=== PATIENT | female | born 1990 | race African-American/Black ===

== ENCOUNTER 2016-06-12 14:51 | Emergency (ER) | payer SELFPAY ==
[~2016-06-12] VITALS: Ht 175.3 cm; Wt 93.5 kg
[~2016-06-12 14:51] MED LIST: CIPR500T4 PO; IBUP800T23 PO
--- NOTE | 2016-06-12 15:30 | PD ---
Physical Exam Time Seen by Provider: 15:28 Narrative 25yo F c/o R sided abd pain x 1 week. Reports N/V today. Denies fever. Denies urinary and vag sx. VSS. Patient seen in triage. Waiting for bed placement. MDM Supervised Visit with VIRGILIO: Izzy Madison Jun 12, 2016 15:30
[2016-06-12] MEDS ORDERED: ONDANSETRON HCL 4 MG/2 ML VIAL IVP ONE (17:30)
[2016-06-12] MEDS ORDERED: SODIUM CHLORIDE 0.9% FLUSH 10 ML FLUSH IV FLUSH PRN (17:30)
[2016-06-12] MEDS ORDERED: SODIUM CHLOR 0.9% 1000 ML INJ 1,000 ML IV SCH (17:30)
--- NOTE | 2016-06-12 17:40 | PD ---
HPI Chief Complaint: GI Complaint Time Seen by Provider: 17:37 Travel History International Travel<30 days: No Contact w/Intl Traveler<30days: No Traveled to known affect area: No History of Present Illness HPI Patient is a 25-year-old female presenting to the emergency department for evaluation of abdominal cramping, nausea, urinary frequency. She states that she vomited 3 times today and has had a headache. She denies any vaginal discharge or bleeding. She states the cramping comes and goes at times is worse than other times, there are no exacerbating or alleviating factors. She denies any significant past medical history. [facility] Past Medical History Medical History: Denies Significant Hx Diminished Hearing: No ?: Unknown LMP: last week Menopausal: Yes : 0 Para: 0 Past Surgical History Surgical History: No Previous Surgery Social History Alcohol Use: Yes (socially) Tobacco Use: No Substance Use: No Allergies-Medications (Allergen,Severity, Reaction): Coded Allergies: No Known Allergies (Verified , 06/12/16) Reported Meds & Prescriptions Reported Meds & Active Scripts Active No Active Prescriptions or Reported Medications Review of Systems Except as stated in HPI: all other systems reviewed are Neg General / Constitutional: Positive: Chills HENT: Positive: Headaches Gastrointestinal: Positive: Nausea, Vomiting Genitourinary: Positive: Frequency, Pelvic Pain (cramping) Musculoskeletal: No: Myalgias Physical Exam Narrative GENERAL: Overweight, well-developed, alert female. SKIN: Focused skin assessment warm/dry. HEAD: Atraumatic. Normocephalic. EYES: Pupils equal and round. No scleral icterus. No injection or drainage. ENT: No nasal bleeding or discharge. Mucous membranes pink and moist. NECK: Trachea midline. No JVD. CARDIOVASCULAR: Regular rate and rhythm. No murmur appreciated. RESPIRATORY: No accessory muscle use. Clear to auscultation. Breath sounds equal bilaterally. GASTROINTESTINAL: Abdomen soft, only tender to palpation in suprapubic region, nondistended. Hepatic and splenic margins not palpable. Positive bowel sounds. MUSCULOSKELETAL: No obvious deformities. No clubbing. No cyanosis. No edema. No CVAT bilaterally. NEUROLOGICAL: Awake and alert. No obvious cranial nerve deficits. Motor grossly within normal limits. Normal speech. PSYCHIATRIC: Appropriate mood and affect; insight and judgment normal. Data Data Last Documented VS Vital Signs Date Time Temp Pulse Resp B/P Pulse Ox O2 Delivery O2 Flow Rate FiO2 06/12/16 17:44 70 15 116/58 100 Orders Complete Blood Count With Diff (06/12/16 17:30) Comprehensive Metabolic Panel (06/12/16 17:30) Lipase (06/12/16 17:30) Urinalysis - C+S If Indicated (06/12/16 17:30) Iv Access Insert/Monitor (06/12/16 17:30) Oximetry (06/12/16 17:30) Ondansetron Inj (Zofran Inj) (06/12/16 17:30) Sodium Chlor 0.9% 1000 Ml Inj (Ns 1000 M (06/12/16 17:30) Sodium Chloride 0.9% Flush (Ns Flush) (06/12/16 17:30) Ed Urine Pregnancytest Poc (06/12/16 17:30) Urine Culture (06/12/16 14:50) Labs Laboratory Tests Test 06/12/16 06/12/16 14:50 17:50 Urine Color YELLOW Urine Turbidity HAZY Urine pH 7.0 Urine Specific [place] 1.029 Urine Protein 30 mg/dL Urine Glucose (UA) NEG mg/dL Urine Ketones TRACE mg/dL Urine Occult Blood NEG Urine Nitrite NEG Urine Bilirubin NEG Urine Urobilinogen LESS THAN 2.0 MG/DL Urine Leukocyte Esterase LARGE Urine RBC 6 /hpf Urine WBC 11 /hpf Urine Squamous Epithelial 6 /hpf Cells Urine Bacteria FEW /hpf Urine Mucus MANY /lpf Microscopic Urinalysis Comment CULTURE INDICATED White Blood Count 8.4 TH/MM3 Red Blood Count 3.76 MIL/MM3 Hemoglobin 10.3 GM/DL Hematocrit 32.9 % Mean Corpuscular Volume 87.4 FL Mean Corpuscular Hemoglobin 27.4 PG Mean Corpuscular Hemoglobin 31.3 % Concent Red Cell Distribution Width 16.7 % Platelet Count 331 TH/MM3 Mean Platelet Volume 9.0 FL Neutrophils (%) (Auto) 78.9 % Lymphocytes (%) (Auto) 16.7 % Monocytes (%) (Auto) 3.9 % Eosinophils (%) (Auto) 0.1 % Basophils (%) (Auto) 0.4 % Neutrophils # (Auto) 6.6 TH/MM3 Lymphocytes # (Auto) 1.4 TH/MM3 Monocytes # (Auto) 0.3 TH/MM3 Eosinophils # (Auto) 0.0 TH/MM3 Basophils # (Auto) 0.0 TH/MM3 CBC Comment DIFF FINAL Differential Comment Sodium Level 140 MEQ/L Potassium Level 3.7 MEQ/L Chloride Level 106 MEQ/L Carbon Dioxide Level 28.5 MEQ/L Anion Gap 6 MEQ/L Blood Urea Nitrogen 8 MG/DL Creatinine 0.72 MG/DL Estimat Glomerular Filtration 121 ML/MIN Rate Random Glucose 78 MG/DL Calcium Level 8.7 MG/DL Total Bilirubin 0.2 MG/DL Aspartate Amino Transf 18 U/L (AST/SGOT) Alanine Aminotransferase 21 U/L (ALT/SGPT) Alkaline Phosphatase 77 U/L Total Protein 8.7 GM/DL Albumin 3.7 GM/DL Lipase 124 U/L [facility] Medical Decision Making Medical Screen Exam Complete: Yes Emergency Medical Condition: Yes Interpretation(s) Laboratory Tests Test 06/12/16 06/12/16 14:50 17:50 Urine Color YELLOW Urine Turbidity HAZY Urine pH 7.0 Urine Specific [place] 1.029 Urine Protein 30 mg/dL Urine Glucose (UA) NEG mg/dL Urine Ketones TRACE mg/dL Urine Occult Blood NEG Urine Nitrite NEG Urine Bilirubin NEG Urine Urobilinogen LESS THAN 2.0 MG/DL Urine Leukocyte Esterase LARGE Urine RBC 6 /hpf Urine WBC 11 /hpf Urine Squamous Epithelial 6 /hpf Cells Urine Bacteria FEW /hpf Urine Mucus MANY /lpf Microscopic Urinalysis Comment CULTURE INDICATED White Blood Count 8.4 TH/MM3 Red Blood Count 3.76 MIL/MM3 Hemoglobin 10.3 GM/DL Hematocrit 32.9 % Mean Corpuscular Volume 87.4 FL Mean Corpuscular Hemoglobin 27.4 PG Mean Corpuscular Hemoglobin 31.3 % Concent Red Cell Distribution Width 16.7 % Platelet Count 331 TH/MM3 Mean Platelet Volume 9.0 FL Neutrophils (%) (Auto) 78.9 % Lymphocytes (%) (Auto) 16.7 % Monocytes (%) (Auto) 3.9 % Eosinophils (%) (Auto) 0.1 % Basophils (%) (Auto) 0.4 % Neutrophils # (Auto) 6.6 TH/MM3 Lymphocytes # (Auto) 1.4 TH/MM3 Monocytes # (Auto) 0.3 TH/MM3 Eosinophils # (Auto) 0.0 TH/MM3 Basophils # (Auto) 0.0 TH/MM3 CBC Comment DIFF FINAL Differential Comment Sodium Level 140 MEQ/L Potassium Level 3.7 MEQ/L Chloride Level 106 MEQ/L Carbon Dioxide Level 28.5 MEQ/L Anion Gap 6 MEQ/L Blood Urea Nitrogen 8 MG/DL Creatinine 0.72 MG/DL Estimat Glomerular Filtration 121 ML/MIN Rate Random Glucose 78 MG/DL Calcium Level 8.7 MG/DL Total Bilirubin 0.2 MG/DL Aspartate Amino Transf 18 U/L (AST/SGOT) Alanine Aminotransferase 21 U/L (ALT/SGPT) Alkaline Phosphatase 77 U/L Total Protein 8.7 GM/DL Albumin 3.7 GM/DL Lipase 124 U/L Vital Signs Date Time Temp Pulse Resp B/P Pulse Ox O2 Delivery O2 Flow Rate FiO2 06/12/16 17:44 70 15 116/58 100 Differential Diagnosis UTI versus diverticulitis versus gastroenteritis versus viral syndrome versus other Narrative Course Patient is a 25-year-old female presenting to the for evaluation of nausea, pelvic cramping, vomiting. Patient's vital signs are stable, urinalysis obtained and is indicative of urinary tract infection. CBC, chemistry are unremarkable. Patient given Zofran and IV fluids in the emergency department. She was encouraged to increase fluid intake, complete full course of in about X as directed, follow up with a primary doctor. She is encouraged to return to emergency department for any new or worsening symptoms. Patient verbalized understanding of these instructions. Patient stable for discharge. Diagnosis Primary Impression: Pyelonephritis Additional Impression: UTI (urinary tract infection) Qualified Code: N39.0 - Urinary tract infection without hematuria, site unspecified Referrals: Primary Care Physician 2 days Patient Instructions: Acute Pyelonephritis (ED), General Instructions Additional Instructions: Increased fluid intake Return to emergency department for any new or worsening symptoms Follow-up with her primary doctor Complete full course of antibiotics as prescribed Med/Other Pt SpecificInfo: Prescription(s) given Scripts Nitrofurantoin Monohydrate Macrocrystals 100 Mg [id number] Mg PO BID 7 Days Ref 0 Prov:Raya Rodas 06/12/16 Phenazopyridine (Pyridium)200 Mg [id number] Mg PO Q8H PRN (DYSURIA) 3 Days Ref 0 Prov:Raya Rodas 06/12/16 Disposition: 01 DISCHARGE HOME Condition: Stable Raya Rodas Jun 12, 2016 17:40
[2016-06-12 17:44] VITALS: BP 116/58; PULSE 70; RESP 15; O2SAT 100
[2016-06-12 18:01] LABS: AUTOMATED NEUTROPHIL # 6.6 TH/MM3 (1.8-7.7); BASOPHIL % 0.4 % (0.0-2.0); EOSINOPHIL % 0.1 % (0.0-4.0); HEMATOCRIT 32.9 % (35.0-46.0); HEMO FLAGS DIFF FINAL; LYMPH % 16.7 % (9.0-44.0); LYMPHOCYTE # 1.4 TH/MM3 (1.0-4.8); MEAN CELL VOLUME 87.4 FL (80.0-100.0); MEAN CORPUSCULAR HEMOGLOBIN 27.4 PG (27.0-34.0); MEAN CORPUSCULAR HGB CONC 31.3 % (32.0-36.0); MONO % 3.9 % (0.0-8.0); NEUT % 78.9 % (16.0-70.0); PLATELET COUNT 331 TH/MM3 (150-450); RED BLOOD COUNT 3.76 MIL/MM3 (4.00-5.30); RED CELL DISTRIBUTION WIDTH 16.7 % (11.6-17.2); WHITE BLOOD COUNT 8.4 TH/MM3 (4.0-11.0)
[2016-06-12 18:12] LABS: BACTERIA, URINE FEW /hpf; BLOOD, URINE NEG (NEG); GLUCOSE,URINE NEG (NEG); KETONE, URINE TRACE mg/dL (NEG); MUCUS URINE MANY /lpf (OCC); NITRITE,URINE NEG (NEG); SQUAMOUS EPITHELIAL CELL URINE 6 /hpf (0-5); URINE COLOR YELLOW (YELLW/STRAW)
[2016-06-12 18:16] LABS: COMMENT (UR) CULTURE INDICATED; CULTURE IF INDICATED CULTURE INDICATED
[2016-06-12 18:28] LABS: ANION GAP 6 MEQ/L (5-15); AST (GOT) 18 U/L (15-37); BICARBONATE 28.5 MEQ/L (21.0-32.0); BLOOD UREA NITROGEN 8 MG/DL (7-18); CHLORIDE 106 MEQ/L (98-107); GLOMERULAR FILTRATION RATE 121 ML/MIN (>89); POTASSIUM 3.7 MEQ/L (3.5-5.1); SODIUM (NA) 140 MEQ/L (136-145)
[2016-06-12 18:31] LABS: ALKALINE PHOSPHATASE 77 U/L (45-117); ALT (GPT) 21 U/L (10-53); TOTAL BILIRUBIN ADULT 0.2 MG/DL (0.2-1.0)
[2016-06-12] MEDS ORDERED: NITR100C4 PO (19:06)
[2016-06-12] MEDS ORDERED: PYRI200T4 PO (19:06)
== END 2016-06-12 19:54 | disposition home or self-care (01) ==
LOC: NEPD 14:51
DX: N12 Tubulo-interstitial nephritis, not specified as acute or chronic (principal); N39.0 Urinary tract infection, site not specified; R51 Headache
CPT/HCPCS: 80053; 81001; 83690; 84703; 85025; 87086; 96361; 96374; 99284; J2405; J7030

== ENCOUNTER 2016-08-09 04:20 | Emergency (ER) | payer SELFPAY ==
[~2016-08-09 04:20] MED LIST changes: -CIPR500T4 PO; -IBUP800T23 PO; +NITR100C4 PO; +PYRI200T4 PO
[2016-08-09 04:23] VITALS: BP 123/62; PULSE 81; RESP 16; TEMP 98.1; O2SAT 98
--- NOTE | 2016-08-09 05:28 | PD ---
HPI Chief Complaint: vomiting Time Seen by Provider: 05:10 Travel History International Travel<30 days: No Contact w/Intl Traveler<30days: No Traveled to known affect area: No History of Present Illness HPI 25 y/o female presents with sore throat, vomiting and intermittent left lower abdominal pain over the past couple of days. She states she generally just feels ill. She denies other concurrent complaints. She states her last menstrual cycle was a month ago and lasted 3 days. She states no specific modifying factors. Quality is nonbloody. Severity is couple episodes. PFSH Past Medical History Medical History: Denies Significant Hx Diminished Hearing: No Tetanus Vaccination: < 5 Years Influenza Vaccination: No ?: Not LMP: 07/31/2016 Menopausal: Yes : 0 Para: 0 Past Surgical History Surgical History: No Previous Surgery Social History Alcohol Use: Yes (socially) Tobacco Use: No Substance Use: No Allergies-Medications (Allergen,Severity, Reaction): Coded Allergies: No Known Allergies (Verified , 08/09/16) Reported Meds & Prescriptions Reported Meds & Active Scripts Active Macrodantin (Nitrofurantoin Macrocrystal) 100 Mg Cap 100 Mg PO BID 3 Days Zofran Odt (Ondansetron Odt) 4 Mg Tab 4 Mg SL Q6HR PRN Review of Systems Except as stated in HPI: all other systems reviewed are Neg Physical Exam Narrative GENERAL: Well-nourished, well-developed patient. Well-appearing SKIN: Warm and dry. HEAD: Normocephalic and atraumatic. EYES: No injection or drainage. ENT: No nasal drainage noted.Mucosa pink and moist. Mild erythema without exudates. No uvular edema. No uvular, palatal, or tonsillar deviation. Airway patent. NECK: Supple, trachea midline. No meningeal signs CARDIOVASCULAR: Regular rate and rhythm RESPIRATORY: No increased effort. No accessory muscle use. GASTROINTESTINAL: Abdomen soft, non-tender, nondistended. NEUROLOGICAL: Awake and alert. Motor and sensory grossly within normal limits. Normal speech. Data Data Last Documented VS Vital Signs Date Time Temp Pulse Resp B/P Pulse Ox O2 Delivery O2 Flow Rate FiO2 08/09/16 04:23 98.1 81 16 123/62 98 Room Air Orders Ed Urine Pregnancytest Poc (08/09/16 05:03) Urinalysis - C+S If Indicated (08/09/16 05:03) Group A Rapid Strep Screen (08/09/16 05:21) Ondansetron Odt (Zofran Odt) (08/09/16 05:30) Strep Culture (Group A) (08/09/16 05:25) Urine Culture (08/09/16 05:20) Labs Laboratory Tests Test 08/09/16 05:20 Urine Color YELLOW Urine Turbidity HAZY Urine pH 6.0 Urine Specific [place] 1.019 Urine Protein TRACE mg/dL Urine Glucose (UA) NEG mg/dL Urine Ketones NEG mg/dL Urine Occult Blood NEG Urine Nitrite NEG Urine Bilirubin NEG Urine Urobilinogen LESS THAN 2.0 MG/DL Urine Leukocyte Esterase LARGE Urine RBC 1 /hpf Urine WBC 15 /hpf Urine Squamous Epithelial 4 /hpf Cells Urine Bacteria FEW /hpf Urine Mucus FEW /lpf Microscopic Urinalysis Comment CULTURE INDICATED MDM Medical Decision Making Medical Screen Exam Complete: Yes Emergency Medical Condition: Yes Medical Record Reviewed: Yes (past history confirm) Interpretation(s) ua with signs of infection strep is negative beta is negative Differential Diagnosis UTI, cyst, , URI, strep pharyngitis Narrative Course Will check beta, urinalysis, strep and dose with Zofran and reevaluate. no emesis here, Patient denies any new complaints and states that they are feeling better. Patient happy with care, all questions answered. Patient knows that follow up is incumbent on them and to return to the emergency room immediately if new or worsening symptoms develop. Patient given strict return precautions, vitals reviewed and are normal, agrees to further workup as an outpatient. Diagnosis Primary Impression: UTI (urinary tract infection) Qualified Code: N39.0 - Urinary tract infection without hematuria, site unspecified Additional Impressions: Vomiting Qualified Code: R11.10 - Vomiting, intractability of vomiting not specified, presence of nausea not specified, unspecified vomiting type Sore throat Patient Instructions: General Instructions Additional Instructions: return as needed, follow with primary thursday, tylenol as needed Med/Other Pt SpecificInfo: Prescription(s) given Scripts Nitrofurantoin Macrocrystal (Macrodantin)100 Mg [id number] Mg PO BID 3 Days Prov:Dannielle Beasley MD 08/09/16 Ondansetron Odt (Zofran Odt)4 Mg Tab4 Mg SL Q6HR PRN (Nausea/Vomiting) #10 TAB Prov:Dannielle Beasley MD 08/09/16 Disposition: 01 DISCHARGE HOME Condition: Stable Dannielle Beasley MD Aug 09, 2016 05:28 Dannielle Beasley MD Aug 09, 2016 05:28
[2016-08-09] MEDS ORDERED: ONDANSETRON ODT 4 MG TAB PO ONE (05:30)
[2016-08-09 06:33] LABS: BACTERIA, URINE FEW /hpf; BLOOD, URINE NEG (NEG); COMMENT (UR) CULTURE INDICATED; CULTURE IF INDICATED CULTURE INDICATED; GLUCOSE,URINE NEG (NEG); KETONE, URINE NEG (NEG); MUCUS URINE FEW /lpf (OCC); NITRITE,URINE NEG (NEG); SQUAMOUS EPITHELIAL CELL URINE 4 /hpf (0-5); URINE COLOR YELLOW (YELLW/STRAW)
[2016-08-09] MEDS ORDERED: ZOFR4TAB3 SL (06:41)
[2016-08-09] MEDS ORDERED: MACR100C3 PO (06:41)
[2016-08-09 06:49] VITALS: BP 118/78
== END 2016-08-09 06:58 | disposition home or self-care (01) ==
LOC: NEPC 04:20
DX: N39.0 Urinary tract infection, site not specified (principal); R11.10 Vomiting, unspecified; J02.9 Acute pharyngitis, unspecified; R10.30 Lower abdominal pain, unspecified; B96.1 Klebsiella pneumoniae [K. pneumoniae] as the cause of diseases classified elsewhere
CPT/HCPCS: 81001; 84703; 87077; 87081; 87086; 87186; 87880; 99284